=== PATIENT | female | born 1990 | race Caucasian/White ===

== ENCOUNTER 2017-12-06 11:53 | Emergency (ER) | payer BC ==
[~2017-12-06] VITALS: Ht 157.5 cm; Wt 48.5 kg
[~2017-12-06 11:53] MED LIST: ACTICIN 5% CREA60 G1 TOP; BACTRIM DS TAB1 EACH; BACTRIM DS TAB1 EACH PO; BIRTH CONTROL PILL; CARAFATE1 GM PO; CIPROFLOXACIN500 M1 PO; NOHOMEMEDICATIONS; NORCO 5-325 TA1 EACH PO; OMEPRAZOLE40 MG PO; VICODIN; ZOFRAN ODT4 MG SUBLING
[2017-12-06 12:18] LABS: URINE BILIRUBIN NEGATIVE (Negative); URINE BLOOD 3+ (Negative); URINE CLARITY CLEAR; URINE COLOR YELLOW; URINE GLUCOSE-RANDOM NEGATIVE (Negative); URINE KETONES NEGATIVE (Negative); URINE LEUKOCYTES-REFLEX NEGATIVE (Negative); URINE NITRITE-REFLEX NEGATIVE (Negative); URINE PROTEIN 1+ (Negative); URINE SPECIFIC GRAVITY >= 1.030 (1.005-1.030); URINE UROBILINOGEN 0.2 E.U./dl (0.2-1.0)
[2017-12-06 12:25] LABS: SQUAMOUS 0-3 Few /LPF (0-3)
[2017-12-06 12:26] LABS: BACTERIA-REFLEX 1-9 Few /HPF (None Seen); CASTS None Seen /LPF (None Seen); CRYSTALS None Seen /LPF (None Seen); URINE RBC >20 Many /HPF (0-2); URINE WBC-REFLEX 0-5 Rare /HPF (0-5)
[2017-12-06 12:27] LABS: ABSOLUTE EOSINOPHILS 0.2 thou/uL (0.0-0.7); ABSOLUTE MONOCYTES 0.3 thou/uL (0.0-1.2); ABSOLUTE NEUTROPHILS 3.4 thou/uL (1.6-8.1); BASOPHILS 0.5 %; EOSINOPHILS 3.4 %; HEMATOCRIT 39.4 % (37.0-47.0); HEMOGLOBIN 13.2 gm/dL (12.0-15.0); LYMPHOCYTES 21.1 %; MCH 29.4 pg (26.0-34.0); MCHC 33.5 g/dL (28.0-37.0); MCV 87.9 fL (80.0-100.0); MONOCYTES 6.6 %; MPV 7.6 fl. (7.2-11.1); NUCLEATED RBCS 0 /100WBC; PLATELET COUNT* 231 thou/uL (150-400); POLYS 68.4 %; RBC 4.48 mil/uL (4.20-5.00); RDW-CV 12.1 % (10.5-14.5)
[2017-12-06 12:37] LABS: CALCIUM 8.6 mg/dL (8.5-10.1); CREATININE 0.6 mg/dL (0.6-1.3); POTASSIUM 3.8 mmol/L (3.5-5.1)
[2017-12-06 12:41] LABS: ALBUMIN 3.9 g/dL (3.4-5.0); TOTAL BILIRUBIN 0.5 mg/dL (<0.1-1.0); TOTAL PROTEIN 7.6 g/dL (6.4-8.2)
[2017-12-06] MEDS ORDERED: TRAMADOL 50 MG50 MG PO (14:23)
[2017-12-06 14:42] VITALS: BP 109/72
== END 2017-12-06 14:43 | disposition home or self-care (01) ==
LOC: M.ERS 11:53
PROVIDERS: Physician Assistant
DX: N20.0 Calculus of kidney (principal)

== ENCOUNTER 2019-09-02 17:29 | Emergency (ER) | payer OTHER ==
[~2019-09-02] VITALS: Ht 160 cm; Wt 68.0 kg
[~2019-09-02 17:29] MED LIST changes: +TRAMADOL 50 MG50 MG PO
[2019-09-02] MEDS ORDERED: NAPROSYN500 MG PO (18:58)
[2019-09-02] MEDS ORDERED: TYLENOL WITH CO1 TA1 PO (18:58)
[2019-09-02] MEDS ORDERED: FLEXERIL PO (18:59)
[2019-09-02 19:07] VITALS: BP 116/66
== END 2019-09-02 19:08 | disposition home or self-care (01) ==
LOC: M.ERS 17:29
DX: S02.2XXA Fracture of nasal bones, initial encounter for closed fracture (principal); S00.531A Contusion of lip, initial encounter; S40.022A Contusion of left upper arm, initial encounter; S40.021A Contusion of right upper arm, initial encounter; Z87.442 Personal history of urinary calculi; Z88.0 Allergy status to penicillin; Y08.89XA Assault by other specified means, initial encounter; Y93.89 Activity, other specified; Y92.89 Other specified places as the place of occurrence of the external cause; Y99.8 Other external cause status

== ENCOUNTER 2019-09-09 15:44 | Emergency (ER) | payer OTHER ==
[~2019-09-09] VITALS: Ht 160 cm; Wt 52.2 kg
[~2019-09-09 15:44] MED LIST changes: +FLEXERIL PO; +NAPROSYN500 MG PO; +TYLENOL WITH CO1 TA1 PO
[2019-09-09] MEDS ORDERED: NORCO 5-325 TA1 EAC2 PO (17:00)
[2019-09-09] MEDS ORDERED: IBUPROFEN 600600 M1 PO (17:00)
[2019-09-09 17:36] VITALS: BP 110/51
== END 2019-09-09 17:37 | disposition home or self-care (01) ==
LOC: M.ERS 15:44
DX: S92.355A Nondisplaced fracture of fifth metatarsal bone, left foot, initial encounter for closed fracture (principal); Z87.442 Personal history of urinary calculi; Z88.0 Allergy status to penicillin; W18.39XA Other fall on same level, initial encounter; Y93.89 Activity, other specified; Y92.89 Other specified places as the place of occurrence of the external cause; Y99.8 Other external cause status

== ENCOUNTER 2020-07-13 22:08 | Emergency (ER) | payer OTHER, MEDICAID ==
[~2020-07-13] VITALS: Ht 162.6 cm; Wt 56.7 kg
[~2020-07-13 22:08] MED LIST changes: +IBUPROFEN 600600 M1 PO; +NORCO 5-325 TA1 EAC2 PO
[2020-07-14] MEDS ORDERED: AZITHROMYCIN 2250 MG PO (00:19)
[2020-07-14 00:40] VITALS: BP 110/62
== END 2020-07-14 00:40 | disposition home or self-care (01) ==
LOC: M.ERS 22:08
DX: J06.9 Acute upper respiratory infection, unspecified (principal); Z20.822 Contact with and (suspected) exposure to COVID-19; H66.90 Otitis media, unspecified, unspecified ear; Z87.442 Personal history of urinary calculi; Z88.0 Allergy status to penicillin

== ENCOUNTER 2020-09-28 04:17 | Emergency (ER) | payer OTHER, MEDICAID ==
[~2020-09-28] VITALS: Ht 160 cm; Wt 52.2 kg
[~2020-09-28 04:17] MED LIST changes: +AZITHROMYCIN 2250 MG PO
[2020-09-28] MEDS ORDERED: ZOLOFT25 MG PO (04:33)
[2020-09-28] MEDS ORDERED: HYDROXYZINE HCL25 M2 PO (04:34)
[2020-09-28] MEDS ORDERED: IBUPROFEN 800800 MG PO (05:55)
[2020-09-28] MEDS ORDERED: ACETAMINOPHEN-1 EAC2 PO (05:55)
[2020-09-28 06:46] VITALS: BP 97/69
== END 2020-09-28 06:48 | disposition home or self-care (01) ==
LOC: M.ERS 04:17
DX: S82.431A Displaced oblique fracture of shaft of right fibula, initial encounter for closed fracture (principal); S00.33XA Contusion of nose, initial encounter; R04.0 Epistaxis; Z79.899 Other long term (current) drug therapy; Z88.0 Allergy status to penicillin; W50.1XXA Accidental kick by another person, initial encounter; Y93.89 Activity, other specified; Y92.89 Other specified places as the place of occurrence of the external cause; Y99.8 Other external cause status

== ENCOUNTER → 2020-10-01 | Outpatient (CLI) | payer OTHER, MEDICAID ==
[~2020-10-01] MED LIST changes: +ACETAMINOPHEN-1 EAC2 PO; +HYDROXYZINE HCL25 M2 PO; +IBUPROFEN 800800 MG PO; +ZOLOFT25 MG PO
== END ==
LOC: M.LAB 15:02
PROVIDERS: ATTEND Orthopaedic Surgery
DX: Z20.822 Contact with and (suspected) exposure to COVID-19 (principal)

== ENCOUNTER 2021-01-29 20:10 | Emergency (ER) | payer OTHER, MEDICAID ==
[~2021-01-29] VITALS: Ht 160 cm; Wt 52.2 kg
[2021-01-29 20:40] VITALS: BP 108/64
[2021-01-29 21:05] LABS: INFLUENZA A ANTIGEN Positive (Negative); INFLUENZA B ANTIGEN Negative (Negative)
== END 2021-01-29 22:16 | disposition left against medical advice (07) ==
LOC: M.ERS 20:10
PROVIDERS: Emergency Medicine
DX: R05.9 Cough, unspecified (principal); Z20.822 Contact with and (suspected) exposure to COVID-19; R51.9 Headache, unspecified; R50.9 Fever, unspecified